=== PATIENT | female | born 1945 | race Caucasian/White ===

== ENCOUNTER 2019-03-07 19:00 | Emergency (ER) | payer MEDICARE, OTHER ==
[~2019-03-07] VITALS: Ht 170.2 cm; Wt 86.2 kg
[2019-03-07 19:24] VITALS: Ht 170.2 cm; Wt 86.2 kg
[2019-03-07 23:52] VITALS: BP 123/69
== END 2019-03-07 23:52 | disposition home or self-care (01) ==
LOC: ED 19:00
DX: R42 Dizziness and giddiness (principal); R51 Headache; R20.2 Paresthesia of skin; I10 Essential (primary) hypertension; Z90.12 Acquired absence of left breast and nipple
CPT/HCPCS: 82962; J8597; Q0162